=== PATIENT | male | born 2000 | race Caucasian/White ===

== ENCOUNTER 2024-09-18 18:49 | Emergency (ER) | payer MEDICAID, SELFPAY ==
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
[2024-09-18 19:30] VITALS: BP 131/79; PULSE 98; RESP 18; TEMP 36.6; O2SAT 93
[2024-09-18] MEDS: HYDROcodone/APAP 5/325 TABLET 1 TAB PO (20:07)
[2024-09-18] MEDS: LIDOCAINE/PRILOCAINE CR 5GM 5 GM TUBE TOP ×3 (21:02→21:04)
[2024-09-18] MEDS: BACITRACIN OINT 15 GM TUBE TOP (21:03)
== END 2024-09-18 23:46 | disposition home or self-care (01) ==
PROVIDERS: Emergency Provider Emergency Medicine
DX: T20.29XA Burn of second degree of multiple sites of head, face, and neck, initial encounter (principal); T31.0 Burns involving less than 10% of body surface; X12.XXXA Contact with other hot fluids, initial encounter
CPT/HCPCS: 99283; A9270